=== PATIENT | female | born 1955 | race African-American/Black ===

== ENCOUNTER → 2016-09-21 | Outpatient (CLI) | payer OTHER ==
[2016-02-05 11:30] VITALS: BP 146/68
[~2016-09-21] MED LIST: ASPI81TA2 PO; BENZ150C3 PO; BUSP10TA PO; FLUT100D IH; HYDR-965 PO; INSU100V SQ; LISI40TA PO; METF-620 PO; NPH,100V SQ; OXYB5TAB33 PO; PREG50CA PO; SERT100T8 PO; SIMV40TA3 PO
--- NOTE | 2016-09-21 12:34 | RAD ---
DATE: 09/21/2016 EXAM: DIGITAL DIAGNOSTIC RT HISTORY: 6 month follow-up coarse, benign appearing, calcifications are again seen medially in the breast. Nodular opacity in the outer aspect of the breast is unchanged. Several lymph nodes are noted in the axilla. There has not been a significant change relative to the previous exam COMPARISON: 02/06/2016 This study was interpreted with the benefit of Computerized Aided Detection (CAD). FINDINGS: Breast Density: SCATTERED The breast parenchyma shows scattered fibroglandular densities. Breast parenchyma level B. Coarse, benign appearing, calcifications are again seen medially in the breast. Nodular opacity in the outer aspect of the breast is unchanged. Several lymph nodes are noted in the axilla. There has not been a significant change relative to the previous exam IMPRESSION: Benign findings. Screening bilateral mammography suggested 02/05/2017 BI-RADS CATEGORY: 2 BENIGN FINDING(S) RECOMMENDED FOLLOW-UP: 6M 6 MONTH FOLLOW-UP PQRS compliance statement: Patient information was entered into a reminder system with a target due date 02/05/2017 for the next mammogram. Mammography is a sensitive method for finding small breast cancers, but it does not detect them all and is not a substitute for careful clinical examination. A negative mammogram does not negate a clinically suspicious finding and should not result in delay in biopsying a clinically suspicious abnormality. "Our facility is accredited by the [employer] Mammography [employer]."
== END | disposition home or self-care (01) ==
LOC: MAMMO 12:25
PROVIDERS: ATTEND Family Medicine
DX: R92.8 Other abnormal and inconclusive findings on diagnostic imaging of breast (principal)
CPT/HCPCS: G0206; 77065

== ENCOUNTER 2017-04-17 07:47 | Emergency (ER) | payer OTHER ==
[2017-04-17] MEDS: FLUORESCEIN OPHTH TEST STRIP. OD (08:23)
[2017-04-17] MEDS: TETRACAINE 0.5% OPHTH SOLUTION 4ML BOTTLE. OD (08:23)
== END 2017-04-17 08:48 | disposition home or self-care (01) ==
LOC: ER 07:47
DX: H57.8 Other specified disorders of eye and adnexa (principal); M19.90 Unspecified osteoarthritis, unspecified site; M79.7 Fibromyalgia; E78.00 Pure hypercholesterolemia, unspecified; I10 Essential (primary) hypertension; E11.40 Type 2 diabetes mellitus with diabetic neuropathy, unspecified; Z90.710 Acquired absence of both cervix and uterus; Z88.2 Allergy status to sulfonamides; Z88.5 Allergy status to narcotic agent; Z88.8 Allergy status to other drugs, medicaments and biological substances
CPT/HCPCS: 99283

== ENCOUNTER → 2019-02-23 | Outpatient (CLI) | payer MEDICARE, OTHER ==
[2017-04-17 08:05] VITALS: BP 198/82
[~2019-02-23] MED LIST changes: +ASPI-630 PO; -ASPI81TA2 PO; +HYDR-3165 PO; -HYDR-965 PO; -INSU100V SQ; +INSU100V6 SQ; +KETO5DRO OD; +LISI-130 PO; -LISI40TA PO; -METF-620 PO; +METF10007 PO; +SIMV40TA18 PO; -SIMV40TA3 PO
--- NOTE | 2019-02-23 14:00 | KCIC ---
Bilateral diagnostic digital mammograms with 3-D tomosynthesis: Reason for examination: Right breast pain and rash for one and half weeks. Comparison is made to previous studies dated 09/21/2016 and 02/06/2016. Bilateral mammograms in CC and oblique projections were obtained with 2-D imaging and 3-D tomosynthesis imaging on a Siemens Inspiration unit and reviewed on the workstation. Interpretation was made with the benefit of CAD. The skin and nipples show no abnormalities. No abnormal axillary lymph nodes are seen. The breast parenchyma is predominantly fatty. (Breast density: Category A.) There are no dominant masses, suspicious calcifications or architectural distortion. Benign calcifications are present and appear to be stable. Impression: No evidence of malignancy. Recommend routine screening. BI-RAD Category 2: Benign. "Our facility is accredited by the [employer] Mammography [employer]." This patient's information has been entered into a reminder system for the patient to be notified with the results of her examination and a target date for the next mammogram. Electronically signed by: Irena Babin MD (02/23/2019 1:57 PM) [id number]
== END | disposition home or self-care (01) ==
LOC: KCIC MAMMO 12:36
PROVIDERS: ATTEND Nurse Practitioner Family
DX: N64.4 Mastodynia (principal)
CPT/HCPCS: 77066

== ENCOUNTER 2020-02-11 20:36 | Emergency (ER) | payer MEDICARE ==
[~2020-02-11] VITALS: Ht 160 cm; Wt 104.5 kg
[~2020-02-11 20:36] MED LIST changes: -PREG50CA PO; +PREG50CA91 PO
[2020-02-11] MEDS ORDERED: HYDROmorphone 2 MG/ML VIAL ONE (20:56)
--- NOTE | 2020-02-11 21:06 | PHYS DOC ---
Past Medical History Past Medical History: Arthritis, Diabetes-Type II, Fibromyalgia, High Cho lesterol, Hypertension, Other Additional Past Medical Histor: FIBROMYALGIA, TENDONITIS, CARPAL TUNNEL, toma ropathy, bursitis,luis Past Surgical History: Hysterectomy Additional Past Surgical Histo: bilateral WRIST REPAIR, BREAST BIOPSY,cataract removal Smoking Status: Never Smoker Alcohol Use: None Drug Use: None General Adult EDM: Chief Complaint: LOWER EXT PAIN HPI: HPI: Patient is a 64 year old female with history of fibromyalgia, diabetes, hypertension, high cholesterol who presents to the ED today with moderate pain to the right knee that began couple minutes ago while she was walking up her staircase at home. Denies falling, she states she had a pop sound from the righ t knee. She states she is can barely put any weight on the knee since then. She states she tried taking hydrocodone with no relief. She states the pain is worse on weightbearing. She is requesting Dilaudid for pain. Review of Systems: Review of Systems: Constitutional: Denies fever or chills. [] Musculoskeletal: Reports right knee pain Integument: Denies rash. [] Neurologic: Denies headache, focal weakness or sensory changes. [] Psychiatric: Denies depression or anxiety. [] Heart Score: Risk Factors: Risk Factors: DM, Current or recent (<one month) smoker, HTN, HLP, family history of CAD, obesity. Risk Scores: Score 0 - 3: 2.5% MACE over next 6 weeks - Discharge Home Score 4 - 6: 20.3% MACE over next 6 weeks - Admit for Clinical Observation Score 7 - 10: 72.7% MACE over next 6 weeks - Early Invasive Strategies Current Medications: Current Medications Medications (Trade) Dose Ordered Sig/Rick Start Time Stop Time Status Last Admin Dose Admin Hydromorphone HCl (Dilaudid) 2 mg STK-MED ONCE 02/11/20 20:56 02/11/20 20:56 DC Allergies: Allergies: Allergies Coded Allergies Type Severity Reaction Last Updated Verified Sulfa (Sulfonamide Antibiotics) Allergy Intermediate 02/05/16 No amlodipine Allergy Intermediate 02/05/16 No carvedilol Allergy Intermediate Shortness of Air 02/05/16 Yes codeine Allergy Intermediate 02/05/16 No gabapentin Allergy Intermediate Palpitations 02/05/16 Yes meloxicam Allergy Intermediate 10/20/16 No Physical Exam: PE: Constitutional: Well developed, well nourished, no acute distress, non-toxic appearance. [] Skin: Warm, dry, no erythema, no rash. [] Back: No tenderness, no CVA tenderness. [] Extremities: Right lower extremity with no obvious deformity. Tenderness diffusely throughout the knee. Patient refusing any range of motion stating it is too painful. +2 right pedal pulse. Cap refill less than 2 seconds the right toes. Neurologic: Alert and oriented X 3, normal motor function, normal sensory function, no focal deficits noted. [] Psychologic: Affect normal, judgement normal, mood normal. [] Current Patient Data: Vital Signs: Vital Signs Date Time Temp Pulse Resp B/P (MAP) Pulse Ox O2 Delivery O2 Flow Rate FiO2 02/11/20 20:58 99 Room Air EKG: EKG: [] Radiology/Procedures: Radiology/Procedures: []PROCEDURE: KNEE RIGHT 3V Exam: Right knee 3 views INDICATION: Right knee pain after walking up steps TECHNIQUE: Frontal, lateral and oblique views of the right knee Comparisons: None FINDINGS: Small suprapatellar effusion. Bone mineralization is normal. No acute or healed fractures. Joint spaces are well-maintained. IMPRESSION: Small suprapatellar effusion without underlying osseous abnormality identified. Electronically signed by: Endy Michel MD (02/11/2020 9:38 PM) [facility] DICTATED and SIGNED BY: ENDY MICHEL MD DATE: 02/11/202137 Course & Med Decision Making: Course & Med Decision Making Pertinent Labs and Imaging studies reviewed. (See chart for details) This is a 64-year-old female patient presenting to the ED today with moderate pain to the right knee that began a couple minutes ago while walking up some steps at home. She had a pop sound from the knee. Right knee x-rays interpreted by radiologist were noted for small amount of suprapatellar swelling otherwise no acute findings. Patient was placed in a right knee immobilizer by the mechanical engineering technician, neurovascular exam is intact. Ice elevation encouraged. Follow- up with orthopedic doctor in the course of this week or next week. Dragon Disclaimer: Dragon Disclaimer: This electronic medical record was generated, in whole or in part, using a voice recognition dictation system. Departure Departure Impression: Primary Impression: Right knee sprain Qualified Codes: S83.91XA - Sprain of unspecified site of right knee, initial encounter Disposition: 01 DC HOME SELF CARE/HOMELESS Condition: STABLE Referrals: NOAM SOLARES MD (PCP) LEENA GRANT MD follow up in one week Patient Instructions: Knee Sprain, [id number] Additional Instructions: You were seen in the ED for right knee pain, your right knee x-rays were negative for any acute findings. You have some small swelling in the knee. Wear the immobilizer provided as tolerated. Follow-up with your own doctor or the provided orthopedic doctor in 1 week. Try to ice and elevate the extremity. JANET AYALA APRN Feb 11, 2020 21:06
[2020-02-11] MEDS ORDERED: HYDROmorphone 2 MG/ML VIAL IM ONE (21:30)
--- NOTE | 2020-02-11 21:41 | RAD ---
Exam: Right knee 3 views INDICATION: Right knee pain after walking up steps TECHNIQUE: Frontal, lateral and oblique views of the right knee Comparisons: None FINDINGS: Small suprapatellar effusion. Bone mineralization is normal. No acute or healed fractures. Joint spaces are well-maintained. IMPRESSION: Small suprapatellar effusion without underlying osseous abnormality identified. Electronically signed by: Endy Duong MD (02/11/2020 9:38 PM) [facility]
[2020-02-11 23:00] VITALS: BP 187/78
== END 2020-02-12 00:10 | disposition home or self-care (01) ==
LOC: ER 20:36
DX: S83.8X1A Sprain of other specified parts of right knee, initial encounter (principal); M19.90 Unspecified osteoarthritis, unspecified site; M79.7 Fibromyalgia; E78.00 Pure hypercholesterolemia, unspecified; E11.40 Type 2 diabetes mellitus with diabetic neuropathy, unspecified; Z90.710 Acquired absence of both cervix and uterus; Z98.890 Other specified postprocedural states; X58.XXXA Exposure to other specified factors, initial encounter; Y93.89 Activity, other specified; Y92.89 Other specified places as the place of occurrence of the external cause; Y99.8 Other external cause status
CPT/HCPCS: 29505; 73562; 96372; 99285; J1170

== ENCOUNTER → 2020-03-07 | Outpatient (CLI) | payer MEDICARE ==
[2020-02-11 23:00] VITALS: BP 187/78
--- NOTE | 2020-03-07 15:51 | KCIC ---
EXAM: 3 views right knee DATE: 03/07/2020 12:00 AM INDICATION: Reason: Pain, ligament laxity. / Spl. Instructions: Knee "popped", general knee pain. Hurts to bear wt. / History: COMPARISON: No Prior FINDINGS/ IMPRESSION: 1. Mild medial compartment joint space narrowing with medial and patellofemoral osteophytes. 2. No knee joint effusion. 3. Chondrocalcinosis. Electronically signed by: Phi Mathew MD (03/07/2020 3:48 PM) [id number]
== END ==
LOC: KCIC 11:50
PROVIDERS: ATTEND Family Medicine
DX: M11.261 Other chondrocalcinosis, right knee (principal); M25.761 Osteophyte, right knee
CPT/HCPCS: 73562

== ENCOUNTER → 2020-04-22 | Outpatient (CLI) | payer MEDICARE ==
--- NOTE | 2020-04-22 12:50 | KCIC ---
Examination: MRI of the right knee without contrast HISTORY: History of right knee pain, swelling COMPARISON: None available TECHNIQUE: Multiplanar, multisequence MR imaging of the right knee was performed without contrast. FINDINGS: The anterior cruciate ligament, posterior cruciate ligament appears intact. There is blunting and tea r of the posterior root of the medial meniscus. The lateral meniscus appears intact. The medial collateral ligament appears intact. The lateral collateral ligamentous complex including t he fibular collateral ligament, biceps femoris tendon and popliteus tendon appear intact. There is a 1.5 cm low T1, low T2 signal with surrounding high T2 signal identified in the weightbeari ng portion of the medial femoral condyle could be insufficiency fracture. The medial, lateral retinaculum appears intact. Moderate knee joint effusion. Mild soft tissue identified about the knee joint. There is moderate joint space loss identified in the medial compartment. There is mild joint space lo ss identified in the lateral, patellofemoral compartments. Small leaking popliteal cyst identified. T here is mild superficial fraying of cartilage identified in the medial, lateral compartment with deep fissuring of cartilage identified in the patellofemoral compartment with subchondral cystic changes. The extensor mechanism appears intact. IMPRESSION: 1. Subchondral insufficiency fracture medial femoral condyle could be insufficiency fracture. 2. Blunting and tear of the posterior root of the medial meniscus. 3. Moderate knee joint effusion with a small leaking popliteal cyst. 4. Grade II chondromalacia medial, lateral compartment. Grade II chondromalacia patellofemoral atiya rtment. 5. Moderate tricompartmental degenerative changes most in the medial compartment. Electronically signed by: Franck Hernandez MD (04/22/2020 12:47 PM) [id number]
== END ==
LOC: KCIC MRI 10:45
PROVIDERS: ATTEND Orthopaedic Surgery
DX: S83.241A Other tear of medial meniscus, current injury, right knee, initial encounter (principal); M84.451A Pathological fracture, right femur, initial encounter for fracture; M25.461 Effusion, right knee; M71.21 Synovial cyst of popliteal space [Baker], right knee; M94.261 Chondromalacia, right knee; M17.11 Unilateral primary osteoarthritis, right knee; X58.XXXA Exposure to other specified factors, initial encounter; Y93.89 Activity, other specified; Y92.89 Other specified places as the place of occurrence of the external cause; Y99.8 Other external cause status
CPT/HCPCS: 73721

== ENCOUNTER 2020-09-12 16:30 | Emergency (ER) | payer MEDICARE ==
[~2020-09-12] VITALS: Ht 154.9 cm; Wt 98.6 kg
[~2020-09-12 16:30] MED LIST changes: -FLUT100D IH; +FLUT100D2 IH; +SERT-268 PO; -SERT100T8 PO
[2020-09-12 17:45] VITALS: BP 171/77
--- NOTE | 2020-09-12 18:32 | ED.ADGEN ---
Past Medical History Past Medical History: Arthritis, Diabetes-Type II, Fibromyalgia, High Cho lesterol, Hypertension, Other Additional Past Medical Histor: FIBROMYALGIA, TENDONITIS, CARPAL TUNNEL, toma ropathy, bursitis,luis Past Surgical History: Hysterectomy Additional Past Surgical Histo: bilateral WRIST REPAIR, BREAST BIOPSY,cataract removal Smoking Status: Never Smoker Alcohol Use: None Drug Use: None General Adult EDM: Chief Complaint: MECHANICAL FALL HPI: HPI: Patient is a 65 year old female coming in after a fall 3 hours prior to evaluation. Patient states she was in her home and got her foot caught causing her to twist her right ankle and fall into a end table. Patient states she struck the left side of her head on the end table. Denies any loss of consciou sness. Patient states she has been held ambulate a few steps with pain. Has increased swelling. Patient also noticed pain and swelling to her left hand. Denies any nausea, vomiting, vision changes since hitting her head. Review of Systems: Review of Systems: All other systems within normal limits except for as noted in the HPI Allergies: Allergies: Allergies Coded Allergies Type Severity Reaction Last Updated Verified Sulfa (Sulfonamide Antibiotics) Allergy Intermediate 02/05/16 No amlodipine Allergy Intermediate 02/05/16 No carvedilol Allergy Intermediate Shortness of Air 02/05/16 Yes codeine Allergy Intermediate 02/05/16 No gabapentin Allergy Intermediate Palpitations 02/05/16 Yes meloxicam Allergy Intermediate 02/05/16 No Physical Exam: PE: Constitutional: Well developed, well nourished, no acute distress, non-toxic appearance. [] HENT: Normocephalic, atraumatic, bilateral external ears normal, nose normal. Tenderness over left occiput and parietal scalp. [] Eyes: PERRLA, conjunctiva normal, no discharge. [] Neck: No rigidity, supple, no stridor. No step-offs or deformities, diffuse posterior neck tenderness. Cardiovascular: Regular rate and rhythm, brisk cap refill [] Lungs & Thorax: Non labored symmetric respirations, no tachypnea or respiratory distress [] Abdomen: Soft, nondistended. Skin: Warm, dry, no erythema, no rash. [] Back: Unremarkable Extremities: No deformities, range of motion grossly intact, no lower extremity edema. Swelling over thenar left hand. Right tib-fib and ankle pain with mild edema compared to left. [] Neurologic: Alert and oriented X 3, no focal deficits noted. [] Psychologic: Affect normal, judgement normal, mood normal. [] Current Patient Data: Vital Signs: Vital Signs Date Time Temp Pulse Resp B/P (MAP) Pulse Ox O2 Delivery O2 Flow Rate FiO2 09/12/20 17:45 97.8 75 20 171/77 (108) 93 Room Air 97.8 EKG: EKG: [] Heart Score: C/O Chest Pain: No Risk Factors: Risk Factors: DM, Current or recent (<one month) smoker, HTN, HLP, family history of CAD, obesity. Risk Scores: Score 0 - 3: 2.5% MACE over next 6 weeks - Discharge Home Score 4 - 6: 20.3% MACE over next 6 weeks - Admit for Clinical Observation Score 7 - 10: 72.7% MACE over next 6 weeks - Early Invasive Strategies Radiology/Procedures: Radiology/Procedures: Exam: Right foot 3 views INDICATION: Fall, pain, swelling TECHNIQUE: Frontal, lateral oblique views of the right foot Comparisons: None FINDINGS: Diffuse osteopenia. There is soft tissue swelling surrounding the foot. Joint spaces are well-maintained. No acute or healed fractures. IMPRESSION: Diffuse soft tissue swelling at the foot without underlying osseous abnormality identified. EXAMINATION: XR HAND_LEFT 3 VIEWS. HISTORY: 65 years Female Reason: fall, pain, swelling / Spl. Instructions: / History: . COMPARISON: None. FINDINGS: No fracture, dislocation or radiopaque foreign body. Degenerative changes are seen at the DIP joints and at the interphalangeal joint of the thumb with the osteophyte formation. There is also mild degenerative change at the carpometacarpal joint at the base of the thumb. No erosions. No suspicious focal bone lesion. IMPRESSION: Degenerative changes. No acute process. Exam: CT head and cervical spine without contrast INDICATION: Fall, head TECHNIQUE: Sequential axial images through the head and cervical spine were obtained without the administration of IV contrast. Exposure: One or more of the following in the visualized dose reduction techniques were utilized for this examination: 1. Automated exposure control 2. Adjustment of the MA and/or KV according to patient size 3. Use of iterative of reconstructive technique Comparisons: None FINDINGS: Head: No focal parenchymal lesion or hemorrhage is identified. There is no midline shift or sulcal effacement. Patchy hypodensity in the periventricular white matter. No acute vascular territory infarction is identified. Turcios-white distinction is preserved. The ventricular system is within normal limits without compression hydrocephalus. The basal cisterns are well maintained. The visualized portions of the paranasal sinuses and mastoid air cells are well- pneumatized. No acute fractures. Cervical spine: Straightening of cervical spine which may be positional. Vertebral body heights are well-maintained. Fracture to the cervical spine is not identified. Multilevel spondylotic change in cervical spine with degenerative disease greatest at C4-C5, C5-6 and C6-C7. Mild bilateral facet arthropathy is also noted in cervical spine. Visualized paraspinal soft tissues are unremarkable. IMPRESSION: 1. No acute intracranial abnormality. 2. Negative CT C-spine for acute traumatic injury.[] EXAMINATION: XR RT TIBIA+FIBULA . HISTORY: 65 years Female Reason: fall, pain, swelling / Spl. Instructions: / History: . COMPARISON: None. FINDINGS: No fracture, dislocation or radiopaque foreign body. The joint spaces and articular surfaces appear unremarkable. IMPRESSION: Unremarkable exam. Course & Med Decision Making: Course & Med Decision Making Pertinent Labs and Imaging studies reviewed. (See chart for details) [] Dragon Disclaimer: Dragon Disclaimer: This electronic medical record was generated, in whole or in part, using a voice recognition dictation system. Departure Departure Impression: Primary Impression: Right ankle sprain Additional Impressions: Fall Scalp contusion Contusion of left hand Disposition: HOME / SELF CARE / HOMELESS Condition: STABLE Referrals: NOAM SOLARES MD (PCP) Patient Instructions: Elastic Bandage and RICE Problem Qualifiers DONNA ROBERTSON MD September 12, 2020 18:32
--- NOTE | 2020-09-12 18:54 | RAD ---
Site ID: [id number] EXAMINATION: XR HAND_LEFT 3 VIEWS. HISTORY: 65 years Female Reason: fall, pain, swelling / Spl. Instructions: / History: . COMPARISON: None. FINDINGS: No fracture, dislocation or radiopaque foreign body. Degenerative changes are seen at the DIP join ts and at the interphalangeal joint of the thumb with the osteophyte formation. There is also mild de generative change at the carpometacarpal joint at the base of the thumb. No erosions. No suspicious f ocal bone lesion. IMPRESSION: Degenerative changes. No acute process. Electronically signed by: Adrian Georges MD (09/12/2020 6:51 PM) [id number]
--- NOTE | 2020-09-12 18:55 | RAD ---
Site ID: [id number] EXAMINATION: XR RT TIBIA+FIBULA . HISTORY: 65 years Female Reason: fall, pain, swelling / Spl. Instructions: / History: . COMPARISON: None. FINDINGS: No fracture, dislocation or radiopaque foreign body. The joint spaces and articular surfaces appea r unremarkable. IMPRESSION: Unremarkable exam. Electronically signed by: Adrian Georges MD (09/12/2020 6:52 PM) [id number]
--- NOTE | 2020-09-12 19:14 | RAD ---
Exam: CT head and cervical spine without contrast INDICATION: Fall, head TECHNIQUE: Sequential axial images through the head and cervical spine were obtained without the admi nistration of IV contrast. Exposure: One or more of the following in the visualized dose reduction techniques were utilized for this examination: 1. Automated exposure control 2. Adjustment of the MA and/or KV according to patient size 3. Use of iterative of reconstructive technique Comparisons: None FINDINGS: Head: No focal parenchymal lesion or hemorrhage is identified. There is no midline shift or sulcal effaceme nt. Patchy hypodensity in the periventricular white matter. No acute vascular territory infarction is panda ntified. Turcios-white distinction is preserved. The ventricular system is within normal limits without compression hydrocephalus. The basal cisterns are well maintained. The visualized portions of the paranasal sinuses and mastoid air cells are well-pneumatized. No acute fractures. Cervical spine: Straightening of cervical spine which may be positional. Vertebral body heights are well-maintained. Fracture to the cervical spine is not identified. Multilevel spondylotic change in cervical spine with degenerative disease greatest at C4-C5, C5-6 and C6-C7. Mild bilateral facet arthropathy is also noted in cervical spine. Visualized paraspinal soft tissues are unremarkable. IMPRESSION: 1. No acute intracranial abnormality. 2. Negative CT C-spine for acute traumatic injury. Electronically signed by: Endy Duong MD (09/12/2020 7:12 PM) [facility]
--- NOTE | 2020-09-12 20:06 | RAD ---
Exam: Right foot 3 views INDICATION: Fall, pain, swelling TECHNIQUE: Frontal, lateral oblique views of the right foot Comparisons: None FINDINGS: Diffuse osteopenia. There is soft tissue swelling surrounding the foot. Joint spaces are well-maintai paula. No acute or healed fractures. IMPRESSION: Diffuse soft tissue swelling at the foot without underlying osseous abnormality identified. Electronically signed by: Endy Duong MD (09/12/2020 8:03 PM) [facility]
== END 2020-09-12 20:44 | disposition home or self-care (01) ==
LOC: ER 16:30
DX: S93.401A Sprain of unspecified ligament of right ankle, initial encounter (principal); S00.03XA Contusion of scalp, initial encounter; S60.222A Contusion of left hand, initial encounter; J45.909 Unspecified asthma, uncomplicated; R51.9 Headache, unspecified; M79.661 Pain in right lower leg; M25.571 Pain in right ankle and joints of right foot; E78.00 Pure hypercholesterolemia, unspecified; E11.40 Type 2 diabetes mellitus with diabetic neuropathy, unspecified; I10 Essential (primary) hypertension; Z90.710 Acquired absence of both cervix and uterus; Z88.1 Allergy status to other antibiotic agents; Z88.2 Allergy status to sulfonamides; Z88.5 Allergy status to narcotic agent; Z88.8 Allergy status to other drugs, medicaments and biological substances; W18.39XA Other fall on same level, initial encounter; Y93.89 Activity, other specified; Y92.89 Other specified places as the place of occurrence of the external cause; Y99.8 Other external cause status
CPT/HCPCS: 70450; 72125; 73130; 73590; 73630; 99285-25